=== PATIENT | male | born 1985 | race Hispanic/Latino ===

== ENCOUNTER 2024-02-14 17:54 | Emergency (ER) | payer SELFPAY ==
[~2024-02-14] VITALS: Ht 170.2 cm; Wt 54.4 kg
[2024-02-14] MEDS ORDERED: IBUPROFEN 600 MG TAB ONE (18:20)
[2024-02-14] MEDS: IBUPROFEN 600 MG TAB PO STA (18:22)
[2024-02-14 21:04] VITALS: PULSE 67; RESP 16; TEMP 98.3; O2SAT 98
== END 2024-02-14 21:05 | disposition home or self-care (01) ==
LOC: ER 18:20
DX: R07.81 Pleurodynia (principal); S20.212A Contusion of left front wall of thorax, initial encounter; W22.09XA Striking against other stationary object, initial encounter; Y92.89 Other specified places as the place of occurrence of the external cause; F17.210 Nicotine dependence, cigarettes, uncomplicated; F41.9 Anxiety disorder, unspecified; F32.A Depression, unspecified
CPT/HCPCS: 71101; 99283